=== PATIENT | female | born 1960 | race Caucasian/White ===

== ENCOUNTER → 2017-04-13 | Outpatient (CLI) | payer OTHER ==
--- NOTE | 2017-04-13 12:02 | REP ---
Lumbar spine seven views including lateral views with flexion and extension: There are no comparisons. There is lumbar scoliosis convex right at the thoracolumbar junction and left in the inferior lumbar spine. Vertebral body heights and alignment are normal. There is no spondylolysis or spondylolisthesis. There is degenerative disc disease at every lumbar level. The facet articulations and sacroiliac articulations are unremarkable. There is no listhesis on the lateral views with flexion or extension. Impression: Degenerative disc disease throughout the lumbar spine. Otherwise, negative lumbar spine. Signed by Marcelino Garza MD 04/13/2017 11:54 A
== END ==
LOC: M SMT 10:51
PROVIDERS: ATTEND Family Medicine
DX: M54.5 Low back pain (principal)

== ENCOUNTER → 2017-04-18 | Outpatient (CLI) | payer OTHER ==
[2017-04-18 15:10] LABS: MEAN CORPUSCULAR HEMOGLOBIN 28.6 pg (27.0-33.0); MEAN CORPUSCULAR HGB CONC 31.4 g/dl (32.0-36.5); MEAN CORPUSCULAR VOLUME 90.9 fl (80.0-96.0); PLATELET COUNT, AUTOMATED 350 10^3/uL (150-450); RED CELL DISTRIBUTION WIDTH 13.2 % (11.5-14.5)
[2017-04-18 15:42] LABS: ALBUMIN 3.9 GM/DL (3.2-5.2); ALBUMIN/GLOBULIN RATIO 1.26 (1.00-1.93); ALKALINE PHOSPHATASE 121 U/L (45-117); ALT/SGPT 23 U/L (12-78); ANION GAP 7 MEQ/L (8-16); AST/SGOT 16 U/L (15-37); BILIRUBIN,TOTAL 0.3 MG/DL (0.2-1.0); BLOOD UREA NITROGEN 19 MG/DL (7-18); CALCIUM LEVEL 8.9 MG/DL (8.5-10.1); CARBON DIOXIDE LEVEL 32 MEQ/L (21-32); CHLORIDE LEVEL 105 MEQ/L (98-107); CHOLESTEROL LEVEL 189 MG/DL (<200); CREATININE FOR GFR 0.77 MG/DL (0.55-1.02); GLOMERULAR FILTRATION RATE > 60.0 (>51); GLUCOSE, FASTING 108 MG/DL (70-105); POTASSIUM SERUM 4.1 MEQ/L (3.5-5.1); SODIUM LEVEL 144 MEQ/L (136-145); TRIGLYCERIDES LEVEL 149 MG/DL (<150)
[2017-04-18 16:01] LABS: WHITE BLOOD COUNT 74.7 10^3/uL (4.0-10.0)
[2017-04-18 16:02] LABS: ADD MANUAL DIFFER YES; DIFF SLIDE NUMBER 133
[2017-04-18 16:08] LABS: SMUDGE CELLS 3+
[2017-04-18 16:09] LABS: HYPOCHROMASIA 1+
== END ==
LOC: M SMT 09:03
PROVIDERS: ATTEND Physician Assistant Medical
DX: C91.11 Chronic lymphocytic leukemia of B-cell type in remission (principal); I10 Essential (primary) hypertension; E78.2 Mixed hyperlipidemia

== ENCOUNTER → 2017-05-02 | Outpatient (REF) | payer OTHER ==
[2017-05-02 15:28] LABS: IMMUNOGLOBULIN M 45.9 MG/DL (40-230)
== END ==
LOC: M LAB REF 12:15
PROVIDERS: ATTEND Internal Medicine Medical Oncology
DX: C91.00 Acute lymphoblastic leukemia not having achieved remission (principal)

== ENCOUNTER → 2017-05-04 | Outpatient (REF) | payer OTHER | LOC: M LAB REF 17:09 | PROVIDERS: ATTEND Family Medicine | DX: Z12.4 Encounter for screening for malignant neoplasm of cervix (principal) ==

== ENCOUNTER → 2017-06-28 | Outpatient (CLI) | payer OTHER ==
[~2017-06-28] MED LIST: ISOVUE-370 76% 100ML VIAL (Q9967) As Ordered ONE
--- NOTE | 2017-06-29 09:32 | REP ---
CONTRAST ENHANCED CT OF THE ABDOMEN AND PELVIS: CLINICAL: Chronic lymphocytic leukemia. TECHNIQUE: Axial contrast enhanced images from the lung bases to the pubic symphysis using 100 mL Isovue 370 intravenous contrast material with coronal and sagittal reformations. COMPARISON: None. FINDINGS: The lung bases demonstrate left lower lobe opacity suggesting acute pneumonia along with bibasilar atelectasis. A 12 nodule in the periphery of the left lung base is suggested (image 19). The liver, spleen, pancreas, gallbladder, bilateral adrenal glands and kidneys are normal. The enteric system is without obstruction or acute inflammatory process. Pelvic demonstrates normal bladder and age-appropriate uterus/adnexa. No ascites. No free air. No significant adenopathy. Musculoskeletal structures are intact and normal. IMPRESSION: 1. Moderate left lower lobe opacity suggesting acute pneumonia along with minimal bibasilar atelectasis. 2. No acute abdominal pelvic pathology appreciated. Specifically, no adenopathy or mass lesion. Unreviewed
--- NOTE | 2017-06-29 09:35 | REP ---
CONTRAST ENHANCED CHEST CT: CLINICAL: Chronic lymphocytic leukemia. TECHNIQUE: Axial contrast enhanced images from the thoracic inlet to the upper abdomen using 100 mL Isovue 370 intravenous contrast material with coronal and sagittal reformations. FINDINGS: The lung mclain demonstrate presumed dependent bibasilar atelectasis as well as a moderate area of plate like linear opacity in the left lower lobe which may reflect atelectasis or acute pneumonia. A noncalcified nodular density in the periphery of the left lower lobe measures approximately 12 mm. No further consolidation, nodule or mass lesion identified. Tracheobronchial tree is patent and within normal limits. Mediastinum demonstrates normal thoracic aorta and heart/pericardium. Mild mediastinal and hilar lymph nodes are identified measuring up to approximately 20 mm short axis diameter in the right hilum. No pleural effusion/reaction or pneumothorax. Thoracic aorta and heart/pericardium are within normal limits. Surrounding musculoskeletal structures are intact. IMPRESSION: 1. Mild bibasilar dependent type changes along with moderate area of linear opacity in the left lower lobe suggesting acute pneumonia versus linear plate like atelectasis. Followup examination in 3 months may be warranted. 2. 12 mm noncalcified nodule in the left lower lobe warrants 3 month re-evaluation and followup. Signed by Vicente Domingo MD 07/01/2017 08:48 A
== END ==
LOC: M RAD 13:56
PROVIDERS: ATTEND Internal Medicine Medical Oncology
DX: C91.10 Chronic lymphocytic leukemia of B-cell type not having achieved remission (principal)

== ENCOUNTER 2017-08-20 10:29 | Emergency (ER) | payer OTHER ==
[2017-08-20] MEDS: ASPIRIN 81 MG CHEW TABLET PO ×2 (10:59)
[2017-08-20 11:28] LABS: HEMATOCRIT 37.4 % (36.0-47.0); HEMOGLOBIN 12.1 g/dl (12.0-16.0); MEAN CORPUSCULAR HEMOGLOBIN 28.2 pg (27.0-33.0); MEAN CORPUSCULAR HGB CONC 32.4 g/dl (32.0-36.5); MEAN CORPUSCULAR VOLUME 87.2 fl (80.0-96.0); PLATELET COUNT, AUTOMATED 294 10^3/uL (150-450); RED BLOOD COUNT 4.29 10^6/uL (4.00-5.40); RED CELL DISTRIBUTION WIDTH 13.6 % (11.5-14.5)
[2017-08-20 11:36] LABS: POS COUNT POS FLAG; POSITIVE DIFF POS FLAG; POSITIVE MORPH POS FLAG
[2017-08-20 11:37] LABS: WHITE BLOOD COUNT 58.9 10^3/uL (4.0-10.0)
[2017-08-20 11:38] LABS: ADD MANUAL DIFFER YES; DIFF SLIDE NUMBER 144
[2017-08-20 11:39] LABS: NT-PRO BNP 104 PG/ML (<125)
[2017-08-20 11:41] LABS: ALBUMIN 3.8 GM/DL (3.2-5.2); ALBUMIN/GLOBULIN RATIO 1.09 (1.00-1.93); ALKALINE PHOSPHATASE 111 U/L (45-117); ALT/SGPT 16 U/L (12-78); ANION GAP 7 MEQ/L (8-16); AST/SGOT 14 U/L (7-37); BILIRUBIN,DIRECT < 0.1 MG/DL (0.0-0.2); BILIRUBIN,TOTAL 0.2 MG/DL (0.2-1.0); BLOOD UREA NITROGEN 28 MG/DL (7-18); CALCIUM LEVEL 8.7 MG/DL (8.5-10.1); CARBON DIOXIDE LEVEL 26 MEQ/L (21-32); CHLORIDE LEVEL 109 MEQ/L (98-107); CPK CREATINE PHOSPHOKINASE 56 U/L (26-192); CREATININE FOR GFR 1.12 MG/DL (0.55-1.02); GLUCOSE, FASTING 143 MG/DL (70-100); LIPASE 182 U/L (73-393); MB/CK RELATIVE INDEX 1.78 (< OR =4); POTASSIUM SERUM 3.5 MEQ/L (3.5-5.1); SODIUM LEVEL 142 MEQ/L (136-145); TOTAL PROTEIN 7.3 GM/DL (6.4-8.2); TROPONIN I < 0.02 NG/ML (< 0.10)
[2017-08-20] MEDS ORDERED: ISOVUE-370 76% 100ML VIAL (Q9967) As Ordered ×2 (11:57)
[2017-08-20 12:01] LABS: LYMPHOCYTES 89 % (16-52); NEUTROPHILS 11 % (35-75)
[2017-08-20 12:02] LABS: PLATELET ESTIMATE NORMAL (NORMAL); SMUDGE CELLS 1+
[2017-08-20 12:03] LABS: ANISOCYTOSIS 1+
[2017-08-20 14:24] LABS: CPK CREATINE PHOSPHOKINASE 46 U/L (26-192); MB/CK RELATIVE INDEX 2.17 (< OR =4)
[2017-08-20 14:50] LABS: TROPONIN I < 0.02 NG/ML (< 0.10)
== END 2017-08-20 15:19 | disposition home or self-care (01) ==
LOC: M ED 10:29
DX: R07.9 Chest pain, unspecified (principal); I10 Essential (primary) hypertension; F41.0 Panic disorder [episodic paroxysmal anxiety]; Z87.891 Personal history of nicotine dependence; Z79.899 Other long term (current) drug therapy
CPT/HCPCS: Q9967

== ENCOUNTER 2017-12-13 11:34 | Outpatient (CLI) | payer OTHER | END 2017-12-21 | LOC: M SLEEP HO 11:34 | DX: R06.83 Snoring (principal); R40.0 Somnolence | CPT/HCPCS: G0399 ==

== ENCOUNTER → 2018-03-31 | Outpatient (CLI) | payer OTHER ==
[2018-03-31 18:03] LABS: C REACTIVE PROTEIN QUANTITATIV 0.93 MG/DL (0.00-0.30); IMMUNOGLOBULIN G 789 MG/DL (681-1648)
[2018-03-31 18:45] LABS: ERYTHROCYTE SEDIMENTATION RATE 25 mm/hr (0-30)
[2018-04-07 14:14] LABS: ANCA-ATYPICAL <1:20 titer (Neg:<1:20); ANTI-SACCHAROMYCES CEREV. IgA <20.0 Units (0.0-24.9); ANTI-SACCHAROMYCES CEREV. IgG 27.7 Units (0.0-24.9); CYTOPLASMIC NEUTROP AB ANCA-C <1:20 titer (Neg:<1:20); ENDOMYSIAL ABY IgA Negative (Negative); PERINUCLEAR AB ANCA-P <1:20 titer (Neg:<1:20); TISSUE TRANSGLUTAMINASE IgA <2 U/mL (0-3); UNITSIGA FOR GLIADIN IGA 3 units (0-19); UNITSIGG FOR GLIADIN IGG 2 units (0-19)
== END ==
LOC: M SMT 13:02
DX: R13.10 Dysphagia, unspecified (principal); R19.7 Diarrhea, unspecified; R14.0 Abdominal distension (gaseous); R14.1 Gas pain; K62.5 Hemorrhage of anus and rectum; R10.84 Generalized abdominal pain
CPT/HCPCS: 86255

== ENCOUNTER → 2018-06-13 | Outpatient (CLI) | payer MEDICARE ==
[~2018-06-13] MED LIST changes: +ISOVUE-370 76% 100ML VIAL (Q9967) As Ordered; -ISOVUE-370 76% 100ML VIAL (Q9967) As Ordered ONE
== END ==
LOC: M RAD 17:56
DX: C91.10 Chronic lymphocytic leukemia of B-cell type not having achieved remission (principal); R59.0 Localized enlarged lymph nodes
CPT/HCPCS: Q9967

== ENCOUNTER 2018-07-31 14:48 | Emergency (ER) | payer MEDICARE ==
[~2018-07-31] VITALS: Ht 157.5 cm; Wt 75.0 kg
[~2018-07-31 14:48] MED LIST changes: +ALPR0.5T3 PO; +AMLO5TAB6 PO; +BACITAB PO; +CYMB60CA3 PO; +DICY20TA11 PO; +FLUTISP; +GABA-843 PO; +HYDR25TAB PO; -ISOVUE-370 76% 100ML VIAL (Q9967) As Ordered; +LEVO750T13 PO; +LISI40TA PO; +METO100T5 PO; +MIRT-16 PO; +PANT40TA3 PO; +PRAV10TA4 PO; +VENTAER IN
[2018-07-31] MEDS ORDERED: DULO1CAP2 (14:59)
--- NOTE | 2018-07-31 15:33 | REP ---
Chest one-view HISTORY: Chest pain Comparison: 08/20/2017 Linear densities are present in the left lower lobe consistent with atelectasis or scar. The right lung is clear. The heart is normal in size. The pulmonary vasculature is normal in appearance. Impression: Left lower lobe atelectasis or scar. Electronically Signed by Tanner Awan MD 07/31/2018 03:24 P
[2018-07-31 15:41] LABS: HEMATOCRIT 36.2 % (36.0-47.0); HEMOGLOBIN 11.2 g/dl (12.0-15.5); MEAN CORPUSCULAR HEMOGLOBIN 25.8 pg (27.0-33.0); MEAN CORPUSCULAR HGB CONC 30.9 g/dl (32.0-36.5); MEAN CORPUSCULAR VOLUME 83.4 fl (80.0-96.0); PLATELET COUNT, AUTOMATED 317 10^3/uL (150-450); RED BLOOD COUNT 4.34 10^6/uL (4.00-5.40)
[2018-07-31 16:15] LABS: ATYPICAL LYMPH 61 % (0-5); LYMPHOCYTES 17 % (16-52); MONOCYTES 3 % (0-8); NEUTROPHILS 19 % (35-75); PLATELET ESTIMATE NORMAL (NORMAL)
[2018-07-31 16:16] LABS: SMUDGE CELLS 2+
[2018-07-31 16:19] LABS: OVALOCYTES 1+; POLYCHROMASIA 1+
[2018-07-31 16:22] LABS: ALBUMIN 3.7 GM/DL (3.2-5.2); ALT/SGPT 43 U/L (12-78); BILIRUBIN,DIRECT 0.1 MG/DL (0.0-0.2); BILIRUBIN,TOTAL 0.4 MG/DL (0.2-1.0); BLOOD UREA NITROGEN 11 MG/DL (7-18); CALCIUM LEVEL 8.3 MG/DL (8.8-10.2); CARBON DIOXIDE LEVEL 24 MEQ/L (21-32); CHLORIDE LEVEL 110 MEQ/L (98-107); CK-MB VALUE MASS < 1.0 NG/ML (<3.6); CPK CREATINE PHOSPHOKINASE 72 U/L (26-192); CREATININE FOR GFR 0.84 MG/DL (0.55-1.30); GLOMERULAR FILTRATION RATE > 60.0 (>45); GLUCOSE, FASTING 125 MG/DL (70-100); LIPASE 154 U/L (73-393); MB/CK RELATIVE INDEX 1.39 (< OR =4); POTASSIUM SERUM 3.5 MEQ/L (3.5-5.1); SODIUM LEVEL 143 MEQ/L (136-145); TOTAL PROTEIN 6.6 GM/DL (6.4-8.2); TROPONIN I < 0.02 NG/ML (< 0.10)
[2018-07-31] MEDS ORDERED: AMLO25TA PO (16:41)
[2018-07-31] MEDS ORDERED: amLODIPine 5 MG TAB PO ONE (16:45)
[2018-07-31 17:06] VITALS: BP_SYST 176; BP_SYST 180; BP_DIAS 81; BP_DIAS 83
--- NOTE | 2018-08-01 18:19 | ECGEPIP ---
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
== END 2018-07-31 17:15 | disposition home or self-care (01) ==
LOC: M ED 14:48
DX: I10 Essential (primary) hypertension (principal); F41.9 Anxiety disorder, unspecified; C91.10 Chronic lymphocytic leukemia of B-cell type not having achieved remission

== ENCOUNTER → 2018-09-13 | Outpatient (CLI) | payer MEDICARE ==
[~2018-09-13] MED LIST changes: +AMLO10TA5 PO; +AMLO25TA PO; +DULO1CAP2
--- NOTE | 2018-09-15 10:43 | SLEEPCENT ---
DATE OF PROCEDURE: 09/13/2018 ORDERED BY: Vicente Lewis Nocturnal polysomnography was performed for the titration of pressure therapy in this patient with a clinical diagnosis of obstructive sleep apnea syndrome confirmed by home testing revealing a respiratory event index of 6.4. For testing, the patient was fit with a [employer] full face mask of small size and 4 cm of water pressure were applied to the circuit and the lights were extinguished. 7 hours and 57 minutes of data were reviewed. There were 323 minutes of sleep identified. Sleep latency was prolonged at 67 minutes. Rapid eye movement (REM) latency was prolonged at 224 minutes. Sleep architecture improved late in the study. Overall sleep efficiency was 69.7%. The electrocardiogram showed a sinus rhythm with an average heart rate of 62 beats per minute. Electroencephalogram (EEG) showed reasonably normal waveforms for awake and sleep. Persistent respiratory events prompted an increase in C-PAP from 4 to 7, at which point, hypoventilatory oxygen desaturations persisted prompting the addition of supplemental oxygen. Best sleep was seen on C-PAP at 7 cm of water with 2 liters of oxygen bled through the C-PAP circuit to maintain a saturation of 90% plus. There was also some activity noted in the limb leads. Limb movement arousal index was 13.2. IMPRESSION: Obstructive sleep apnea syndrome (G47.33). RECOMMENDATION: Nightly use of pressure therapy at 7 cm of water with 2 liters of oxygen bled through the system to address hypoventilatory oxygen desaturations.
== END ==
LOC: M SLEEP 19:47
PROVIDERS: ATTEND Physician Assistant
DX: G47.33 Obstructive sleep apnea (adult) (pediatric) (principal)

== ENCOUNTER → 2018-09-29 | Outpatient (CLI) | payer MEDICARE ==
[~2018-09-29] MED LIST changes: +E-Z-GAS II EFFERVESCENT PACKET (SODIUM BICARB./CITRIC ACID/SIMETHICONE) As Ordered ONE; +E-Z-HD 98% w/w 340GM SUSP BTL As Ordered ONE; +E-Z-PAQUE 96% w/w SUSP 176GM BTL As Ordered ONE
--- NOTE | 2018-10-02 11:00 | REP ---
UPPER GI AIR CONTRAST AND SMALL BOWEL FOLLOW THROUGH The procedure was performed under the direct supervision of Dr. Platt. The images were reviewed with Dr. Platt The forestry foreman film shows no organomegaly or pathological masses. The intestinal gas pattern is non-specific. Liquid barium and gas producing crystals were given in the erect position as well as liquid barium in the prone oblique position in order to perform a double contrast upper GI examination. Additionally liquid barium was given at the end of the examination in order to perform a small bowel follow through. The oral and pharyngeal stages of deglutition are unremarkable. Esophageal transport is prompt and efficient and there is no esophagitis, stricture, mucosal ring or hiatal hernia. There is gastroesophageal reflux demonstrated to above the level of the joyce. The stomach giraldo are normally outlined . The rugal folds are smooth and regular. There is no gastritis neoplasm or ulcer disease. The duodenal giraldo are normally outlined . The mucosal folds are smooth and regular. There is no duodenitis pancreatitis peptic ulcer disease or neoplasm. The visualized portion of the proximal small bowel appears normal in course and caliber. The barium column was followed through the small bowel to the level of the terminal ileum. Small bowel transit time is approximately 2 hours and 15 minutes . During fluoroscopy gentle palpation shows all loops are freely movable and pliable. There are no fixed or angulated loops. The small bowel mucosal pattern is normal in course and caliber. There is no transition to suggest a partial small-bowel obstruction. Spot filming of the terminal ileum shows it to be unremarkable. Impression: There is gastroesophageal reflux demonstrated to above the level of the joyce. Otherwise, unremarkable double contrast upper GI and small bowel follow through examination. 1.3 minutes of fluoro time was utilized for this procedure. Reviewed by KENNEDY Huitron 09/29/2018 05:15 P Electronically Signed by Marcelino Platt MD 10/02/2018 10:51 A
== END ==
LOC: M RAD 07:57
PROVIDERS: ATTEND Physician Assistant
DX: D50.9 Iron deficiency anemia, unspecified (principal); K21.9 Gastro-esophageal reflux disease without esophagitis

== ENCOUNTER → 2018-10-16 | Outpatient (REF) | payer MEDICARE ==
[~2018-10-16] MED LIST changes: -E-Z-GAS II EFFERVESCENT PACKET (SODIUM BICARB./CITRIC ACID/SIMETHICONE) As Ordered ONE; -E-Z-HD 98% w/w 340GM SUSP BTL As Ordered ONE; -E-Z-PAQUE 96% w/w SUSP 176GM BTL As Ordered ONE
== END ==
LOC: M SFHCPLAZ 11:39
PROVIDERS: ATTEND Dermatology
DX: L57.0 Actinic keratosis (principal); D22.5 Melanocytic nevi of trunk; D23.39 Other benign neoplasm of skin of other parts of face

== ENCOUNTER 2018-12-26 15:36 | Emergency (ER) | payer MEDICARE ==
[~2018-12-26] VITALS: Ht 157.5 cm; Wt 76.4 kg
[~2018-12-26 15:36] MED LIST changes: +CARV25TA PO; +FURO40TA2 PO; -MIRT-16 PO; +MIRT1TAB16 PO; +POTA20TA6 PO
[2018-12-26] MEDS ORDERED: PERCOCET 5MG/325MG TAB PO ONE (16:45)
--- NOTE | 2018-12-26 16:53 | REP ---
LEFT KNEE, FOUR VIEWS: HISTORY: Trauma. There is no acute fracture or dislocation. The joint spaces are normal in appearance. Calcification is present superior to the patella. This represents tendon calcification. IMPRESSION: There is no acute fracture or dislocation. Electronically Signed by Tanner Awan MD 12/26/2018 04:55 P
--- NOTE | 2018-12-26 16:57 | REP ---
LEFT TIBIA FIBULA, FOUR VIEWS: HISTORY: Trauma. The patient is status-post ORIF of fractures of the distal tibia and fibula. Metal hardware is present. There is a nondisplaced fracture at the junction of the proximal and middle thirds of the fibula. There is no dislocation. The knee joint space is normal in appearance. IMPRESSION: Nondisplaced fracture at the junction of the proximal and middle thirds of the fibula. Electronically Signed by Tanner Awan MD 12/26/2018 05:05 P
--- NOTE | 2018-12-26 17:01 | REP ---
LEFT ANKLE, FOUR VIEWS: HISTORY: Trauma. The patient is status-post ORIF of the fractures of the distal tibia and fibula. Metal hardware is present. There is no acute fracture or dislocation. The joint space is normal in appearance. Osteophytes are present on the inferior and posterior calcaneus. IMPRESSION:There is no acute fracture or dislocation. Electronically Signed by Tanner Awan MD 12/26/2018 05:05 P
[2018-12-26] MEDS ORDERED: PERC5TAB12 PO (17:27)
[2018-12-26 17:45] VITALS: BP 159/71
== END 2018-12-26 18:33 | disposition home or self-care (01) ==
LOC: M ED 15:36 → EDBD 15:36 → M ED 18:33
DX: S82.402A Unspecified fracture of shaft of left fibula, initial encounter for closed fracture (principal); W01.0XXA Fall on same level from slipping, tripping and stumbling without subsequent striking against object, initial encounter; Y92.830 Public park as the place of occurrence of the external cause; C91.10 Chronic lymphocytic leukemia of B-cell type not having achieved remission; I10 Essential (primary) hypertension; E78.9 Disorder of lipoprotein metabolism, unspecified; D50.9 Iron deficiency anemia, unspecified; K58.9 Irritable bowel syndrome, unspecified; F41.9 Anxiety disorder, unspecified; F32.9 Major depressive disorder, single episode, unspecified; Z79.899 Other long term (current) drug therapy

== ENCOUNTER → 2019-03-23 | Outpatient (CLI) | payer MEDICARE ==
[~2019-03-23] MED LIST changes: -DULO1CAP2; +DULO1CAP5; +FURO20TA2 PO; +GASTROGRAFIN SOLUTION 30ML (Q9963) As Ordered ONE; +IMBR1CAP PO; +ISOVUE-370 76% 100ML VIAL (Q9967) As Ordered ONE; +LISI-538 PO; +PERC5TAB12 PO
--- NOTE | 2019-03-23 18:57 | REP ---
Clinical: Chronic lymphocytic leukemia for restaging. Technique: Axial contrast enhanced images from the thoracic inlet to the upper abdomen with coronal and sagittal re-formations using 100 ml Isovue 370 intravenous contrast material. Comparison: 06/13/2018. Findings: The bilateral lung mclain demonstrate mild stable chronic interstitial changes and minimal primarily left basilar chronic scarring. No acute consolidation, nodule or mass lesion. Tracheobronchial tree is patent. No effusion. No pneumothorax. The mediastinum demonstrates stable bilateral hilar lymph nodes measuring 2.0 cm on the right and 1.7 cm on the left. Congenital duplicated superior vena cava again noted. Thoracic aorta is without aneurysm or dissection. No cardiomegaly. No pericardial effusion. No significant axillary adenopathy. Musculoskeletal structures demonstrate stable degenerative changes. Impression: 1. Lung mclain demonstrate stable chronic interstitial changes and minimal basilar scarring without acute mediastinal or pleuroparenchymal process. 2. Stable hilar lymph nodes without increased adenopathy. Electronically Signed by Vicente Domingo MD 03/23/2019 06:49 P
--- NOTE | 2019-03-23 19:05 | REP ---
Clinical: Chronic lymphocytic leukemia for restaging. Technique: Axial contrast enhanced images from the lung bases to the pubic symphysis using oral (per protocol) and 100 ml Isovue 370 intravenous contrast material with coronal and sagittal re-formations. Comparison: 08/20/2017. Findings: Lung bases demonstrate minimal left basilar and lingular fibroatelectatic changes. Visualized heart and pericardium normal. Liver, spleen, pancreas, gallbladder, bilateral adrenal glands and kidneys are relatively normal. Subcentimeter renal hypodensities likely represent small cysts and are essentially unchanged compared to prior examination. The enteric system is without obstruction or acute inflammatory process. Colonic and sigmoid diverticulosis noted without acute diverticulitis. Pelvis demonstrates normal bladder and age-appropriate uterus/adnexa. No ascites. Small intra-abdominal/mesenteric lymph nodes measure up to approximately 12.5 mm maximal diameter and bilateral inguinal lymph nodes measuring up to approximately 1.9 cm maximal diameter are essentially unchanged compared to prior examination and no increased adenopathy is otherwise noted. Abdominal aorta demonstrates atherosclerotic changes without aneurysm or dissection. Musculoskeletal structures demonstrate degenerative changes without focal osseous abnormality. Impression: 1. Nonspecific mesenteric and inguinal lymph nodes remain stable. No increased adenopathy, ascites or mass lesion appreciated. 2. Colonic and predominantly sigmoid diverticulosis without acute diverticulitis. 3. Stable subcentimeter renal hypodensities likely representing small cysts. Electronically Signed by Vicente Domingo MD 03/23/2019 06:57 P
--- NOTE | 2019-03-27 09:16 | REP ---
Soft-tissue neck CT study with IV contrast: History: CLL, restaging. New neck adenopathy. No comparison soft-tissue neck CT study. CT contrast dose: 100 mL of intravenous Isovue 370. CT findings: There is a 1 cm mucous retention cyst in the right maxillary sinus. The paranasal sinuses are otherwise clear. No bony destructive lesion is seen. There are some degenerative spondylosis changes in the cervical spine. Parotid and submandibular glands are normal and symmetric. Thyroid lobes are homogeneous and normal in size. Tonsillar and peritonsillar soft tissues are unremarkable. There is no evidence of neck mass. There are scattered bilateral anterior cervical lymph nodes. The largest of these is on the left with measurements of 19 x 11 x 12 mm. This is the only enlarged lymph node visible in the neck. There are a few scattered normal-sized posterior cervical lymph nodes. No glottic or subglottic airway lesion is appreciated. The lung apices are clear. On the lower most cuts there is a 13 mm lymph node in the right hilus and a similar sized lymph node is seen in the subcarinal chain. Impression: Scattered normal-sized lymph nodes. There is one mildly hypertrophied lymph node in the left anterior neck. Borderline size right hilar and subcarinal lymph nodes in the mediastinum. Small mucous retention cyst in the right maxillary sinus. Otherwise negative. Electronically Signed by Macario Wiley MD 03/27/2019 09:44 A
== END ==
LOC: M RAD 14:53
PROVIDERS: ATTEND Internal Medicine Medical Oncology
DX: C91.12 Chronic lymphocytic leukemia of B-cell type in relapse (principal)
CPT/HCPCS: 70491; 71260; 74177; Q9963; Q9967

== ENCOUNTER 2019-04-05 10:45 | Emergency (ER) | payer MEDICARE ==
[~2019-04-05] VITALS: Ht 157.5 cm; Wt 74.0 kg
[~2019-04-05 10:45] MED LIST changes: -FURO20TA2 PO; -GASTROGRAFIN SOLUTION 30ML (Q9963) As Ordered ONE; -ISOVUE-370 76% 100ML VIAL (Q9967) As Ordered ONE; -LISI-538 PO
[2019-04-05] MEDS ORDERED: CYMB60CA3 PO (12:31)
[2019-04-05 14:00] VITALS: BP 160/90
[2019-04-05] MEDS ORDERED: LISI-538 PO (14:38)
[2019-04-05] MEDS ORDERED: POTA20TA6 PO (14:38)
[2019-04-05] MEDS ORDERED: FURO20TA2 PO (14:38)
--- NOTE | 2019-04-05 20:37 | ECGEPIP ---
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
== END 2019-04-05 14:47 | disposition home or self-care (01) ==
LOC: M ED 10:45
DX: I10 Essential (primary) hypertension (principal); Z91.14 Patient's other noncompliance with medication regimen; E78.5 Hyperlipidemia, unspecified; K58.9 Irritable bowel syndrome, unspecified; Z87.01 Personal history of pneumonia (recurrent); Z79.899 Other long term (current) drug therapy

== ENCOUNTER 2019-11-04 19:49 | Emergency (ER) | payer MEDICARE ==
[~2019-11-04] VITALS: Ht 157.5 cm; Wt 77.3 kg
[~2019-11-04 19:49] MED LIST changes: +CEFU1TAB20 PO; +FURO20TA2 PO; +LISI-538 PO; +NORV5TAB PO
[2019-11-04] MEDS ORDERED: ONDANSETRON 4MG/2ML VIAL (J2405 PER 1MG) IV ONE (20:15)
[2019-11-04] MEDS ORDERED: MORPHINE 10 MG/ML 1ML VIAL (J2270) IV ONE (20:15)
[2019-11-04] MEDS ORDERED: propofoL 200 MG/20 ML VIAL As Ordered ONE (21:05)
[2019-11-04] MEDS ORDERED: propofoL 200 MG/20 ML VIAL IV ONE (21:30)
[2019-11-04] MEDS ORDERED: NORCO 5/325MG TABLET (BULK FOR ED) PO ONE (21:45)
[2019-11-04 21:55] VITALS: BP 109/58
--- NOTE | 2019-11-05 03:28 | REP ---
Clinical: Status post reduction. Technique: Portable AP and lateral views of the right wrist. Findings: Comminuted fracture involving the distal radial metaphysis and fracture of the ulnar styloid process are again noted. Reduction and alignment may warrant reevaluation. Impression: Status post reduction. Reevaluation may be warranted. Electronically Signed by Vicente Domingo MD 11/05/2019 03:19 A
--- NOTE | 2019-11-05 03:33 | REP ---
Clinical: Trauma. Technique: Portable AP and lateral views of the left forearm. Findings: Comminuted posteriorly displaced Colles' fracture of the distal radial metaphysis and ulnar styloid fracture noted with overlying soft tissue swelling. Impression: Comminuted displaced Colles' fracture of the distal radius and ulnar styloid. Electronically Signed by Vicente Domingo MD 11/05/2019 03:25 A
== END 2019-11-04 22:09 | disposition home or self-care (01) ==
LOC: M ED 19:49
DX: S52.532A Colles' fracture of left radius, initial encounter for closed fracture (principal); S52.612A Displaced fracture of left ulna styloid process, initial encounter for closed fracture; W01.0XXA Fall on same level from slipping, tripping and stumbling without subsequent striking against object, initial encounter; Y92.099 Unspecified place in other non-institutional residence as the place of occurrence of the external cause; Y93.9 Activity, unspecified; Y99.9 Unspecified external cause status; I10 Essential (primary) hypertension; K21.9 Gastro-esophageal reflux disease without esophagitis; J45.909 Unspecified asthma, uncomplicated; F32.9 Major depressive disorder, single episode, unspecified; D50.9 Iron deficiency anemia, unspecified; C91.10 Chronic lymphocytic leukemia of B-cell type not having achieved remission; Z79.899 Other long term (current) drug therapy
CPT/HCPCS: 25605; 73090; 73100; 96374; 96375; 99152; 99153; 99285; J2270; J2405

== ENCOUNTER → 2020-07-01 | Outpatient (CLI) | payer SELFPAY ==
[~2020-07-01] MED LIST changes: -AMLO10TA5 PO; +AMLO1TAB24 PO; +AMLO1TAB25 PO; -AMLO5TAB6 PO; +PANT40TA29 PO; -PANT40TA3 PO
== END ==
LOC: M LABSMTC 14:59
PROVIDERS: ATTEND Pediatrics
DX: Z11.59 Encounter for screening for other viral diseases (principal)

== ENCOUNTER → 2020-11-27 | Outpatient (CLI) | payer MEDICARE ==
[~2020-11-27] MED LIST changes: +COVI100V IM; -DULO1CAP5; +DULO1CAP5 PO; +GABA-282 PO; -GABA-843 PO; +HYDR-3490 PO; -HYDR25TAB PO; -LISI-538 PO; +LISI20TA33 PO; -LISI40TA PO; +LISI40TA4 PO
--- NOTE | 2020-11-27 15:16 | REP ---
INDICATION: PERSONAL HISTORY OF NICOTINE DEPENDENCE. COMPARISON: Comparison chest CT studies are reviewed dated June 28, 2017, August 20, 2017, June 13, 2018, and the most recent study from March 23, 2019.. TECHNIQUE: Dose reduction was performed utilizing CARE dose with automated adjustment of the kV and MAS according to patient size; iterative reconstruction, automated exposure control, as well as adaptive dose shielding. Helical scanning is acquired and 3 mm axial images are re-formatted at lung only windows. FINDINGS: Digital preliminary drier helper radiograph and axial CT images demonstrate linear scarring in the lingula. This is unchanged from comparison CT study of March 23, 2019. It is somewhat less pronounced than the scarring noted on June 28, 2017. There is also some mild linear fibrosis in the left lower lobe unchanged. No new infiltrate is seen. No lung mass or new pulmonary nodule is appreciated. IMPRESSION: Lung RADS category 1 findings. Repeat screening study suggested in 1 year. <Electronically signed by Jason Wiley > 11/27/20 [id number]
== END ==
LOC: M RAD 13:04
PROVIDERS: ATTEND Family Medicine
DX: Z12.2 Encounter for screening for malignant neoplasm of respiratory organs (principal); Z87.891 Personal history of nicotine dependence

== ENCOUNTER → 2020-12-01 | Outpatient (REF) | payer MEDICARE | LOC: M LAB REF 17:23 | PROVIDERS: ATTEND Family Medicine | DX: R30.0 Dysuria (principal) ==

== ENCOUNTER → 2021-04-21 | Outpatient (REF) | payer MEDICARE | LOC: M LAB REF 17:11 | PROVIDERS: ATTEND Family Medicine | DX: J06.9 Acute upper respiratory infection, unspecified (principal) ==

== ENCOUNTER → 2021-12-01 | Outpatient (CLI) | payer MEDICARE ==
[~2021-12-01] MED LIST changes: -CYMB60CA3 PO; +CYMB60CA4 PO; -DICY20TA11 PO; +DICY20TA20 PO; +MUCI600T31 PO; +OMEP-173; +POTA-151 PO; -POTA20TA6 PO; +PRED10TA2
== END ==
LOC: M RAD 09:52
PROVIDERS: ATTEND Family Medicine
DX: Z12.2 Encounter for screening for malignant neoplasm of respiratory organs (principal); Z87.891 Personal history of nicotine dependence

== ENCOUNTER → 2022-04-01 | Outpatient (CLI) | payer MEDICARE ==
[~2022-04-01] MED LIST changes: +LEVO1TAB40 PO; -LEVO750T13 PO
== END ==
LOC: M WHC 12:43
PROVIDERS: ATTEND Nurse Practitioner Adult Health
DX: Z12.31 Encounter for screening mammogram for malignant neoplasm of breast (principal); Z13.820 Encounter for screening for osteoporosis; R92.8 Other abnormal and inconclusive findings on diagnostic imaging of breast

== ENCOUNTER 2022-04-26 12:17 | Observation (INO) | payer MEDICARE ==
[~2022-04-26] VITALS: Ht 165.1 cm; Wt 73.7 kg
[~2022-04-26 12:17] MED LIST changes: -FLUTISP; +FLUTISP NARES; -OMEP-173; +OMEP-173 PO; -VENTAER IN; +VENTAER INH
[2022-04-26] MEDS ORDERED: METOPROLOL TART 25 MG TABLET PO ONE (13:15)
[2022-04-26] MEDS: METOPROLOL 5 MG/5 ML VIAL IV SCH ×3 (13:25→14:46)
[2022-04-26 13:38] LABS: HEMATOCRIT 43.9 % (36.0-47.0); HEMOGLOBIN 14.2 g/dl (12.0-15.5); MEAN CORPUSCULAR HEMOGLOBIN 27.9 pg (27.0-33.0); MEAN CORPUSCULAR HGB CONC 32.3 g/dl (32.0-36.5); MEAN CORPUSCULAR VOLUME 86.2 fl (80.0-96.0); PLATELET COUNT, AUTOMATED 365 10^3/uL (150-450); RED BLOOD COUNT 5.09 10^6/uL (4.00-5.40); WHITE BLOOD COUNT 29.9 10^3/uL (4.0-10.0)
[2022-04-26 14:26] LABS: CREATININE FOR GFR 1.14 MG/DL (0.55-1.30); GLOMERULAR FILTRATION RATE 51.1 (>45); MAGNESIUM LEVEL 2.4 MG/DL (1.8-2.4); POTASSIUM SERUM 3.9 MEQ/L (3.5-5.1); THYROID STIMULATING HORMONE 2.08 uIU/ML (0.358-3.740)
[2022-04-26 14:35] LABS: ATYPICAL LYMPH 2 % (0-5); LYMPHOCYTES 62 % (16-44); NEUTROPHILS 36 % (28-66)
[2022-04-26 14:36] LABS: PLATELET ESTIMATE NORMAL (NORMAL)
[2022-04-26 14:37] LABS: SMUDGE CELLS 3+
[2022-04-26] MEDS ORDERED: LIDOCAINE W/EPINEPHRINE 1% 20ML VIAL SC ONE (14:55)
[2022-04-26] MEDS ORDERED: DIGOXIN INJ 0.5 MG/2 ML AMP (J1160) IV ONE (15:55)
[2022-04-26] MEDS ORDERED: APIXABAN 5 MG TAB (ELIQUIS) PO ONE (16:00)
[2022-04-26] MEDS ORDERED: ALEN70TA82 PO (16:24)
[2022-04-26] MEDS ORDERED: POTA1TAB14 PO (16:24)
[2022-04-26] MEDS ORDERED: AMLO1TAB24 PO (16:24)
[2022-04-26] MEDS ORDERED: LISI40TA4 PO (16:24)
[2022-04-26] MEDS ORDERED: FURO20TA2 PO (16:24)
[2022-04-26] MEDS ORDERED: GABA-1171 PO (16:24)
[2022-04-26] MEDS ORDERED: HOME MED LIST COMPLETE! XX SCH (16:25)
[2022-04-26 18:55] LABS: RSV AMPLIFICATION NEGATIVE (NEGATIVE)
[2022-04-26] MEDS ORDERED: diltiaZEM 125 MG in NS 100 ML IV SCH ×2 (20:00→21:21)
[2022-04-26] MEDS ORDERED: MIRTAZAPINE 15 MG TAB PO SCH (21:00)
[2022-04-26 21:37] LABS: ALBUMIN 3.9 GM/DL (3.2-5.2); BILIRUBIN,DIRECT 0.2 MG/DL (0.0-0.2); BILIRUBIN,TOTAL 0.5 MG/DL (0.2-1.0); TOTAL PROTEIN 7.2 GM/DL (6.4-8.2)
[2022-04-26] MEDS: ALPRAZolam 0.5 MG TAB PO PRN (21:56)
[2022-04-26] MEDS: GABAPENTIN 100 MG CAP PO SCH (21:56)
[2022-04-26] MEDS: APIXABAN 5 MG TAB (ELIQUIS) PO SCH (21:56)
[2022-04-26 22:39] VITALS: BP 132/95
[2022-04-27 00:28] VITALS: BP 120/70
[2022-04-27 04:00] VITALS: BP 120/61
[2022-04-27] MEDS ORDERED: CALCIUM CARBONATE 500 MG CHEW U/D PO PRN (04:55)
[2022-04-27 05:42] LABS: HEMATOCRIT 47.1 % (36.0-47.0); HEMOGLOBIN 14.1 g/dl (12.0-15.5); MEAN CORPUSCULAR HEMOGLOBIN 28.3 pg (27.0-33.0); MEAN CORPUSCULAR HGB CONC 29.9 g/dl (32.0-36.5); MEAN CORPUSCULAR VOLUME 94.6 fl (80.0-96.0); PLATELET COUNT, AUTOMATED 311 10^3/uL (150-450); RED BLOOD COUNT 4.98 10^6/uL (4.00-5.40); WHITE BLOOD COUNT 23.1 10^3/uL (4.0-10.0)
[2022-04-27 05:54] LABS: ATYPICAL LYMPH 3 % (0-5); EOSINOPHILS 1 % (0-3); HEMOGLOBIN A1c 5.8 %; LYMPHOCYTES 64 % (16-44); MONOCYTES 5 % (0-5); NEUTROPHILS 27 % (28-66)
[2022-04-27 05:55] LABS: ANISOCYTOSIS 1+; PLATELET ESTIMATE NORMAL (NORMAL); POIKILOCYTOSIS 1+
[2022-04-27 06:11] LABS: BLOOD UREA NITROGEN 19 MG/DL (7-18); CALCIUM LEVEL 8.7 MG/DL (8.8-10.2); CARBON DIOXIDE LEVEL 29 MEQ/L (21-32); CHLORIDE LEVEL 108 MEQ/L (98-107); CHOLESTEROL LEVEL 186 MG/DL (<200); CHOLESTEROL RISK RATIO 4.325 (<5); CREATININE FOR GFR 0.99 MG/DL (0.55-1.30); GLOMERULAR FILTRATION RATE > 60.0 (>45); GLUCOSE, FASTING 115 MG/DL (70-100); HDL CHOLESTEROL 43 MG/DL (>40); LDL CHOLESTEROL 102 MG/DL (<100); MAGNESIUM LEVEL 2.5 MG/DL (1.8-2.4); NON-HDL-C 143 MG/DL; POTASSIUM SERUM 3.7 MEQ/L (3.5-5.1); SODIUM LEVEL 140 MEQ/L (136-145); TRIGLYCERIDES LEVEL 203 MG/DL (<150)
[2022-04-27 07:59] VITALS: BP 145/73
[2022-04-27] MEDS ORDERED: METOCLOPRAMIDE 5 MG TAB PO ONE (08:00)
[2022-04-27] MEDS: GABAPENTIN 100 MG CAP PO SCH ×2 (08:54→15:14)
[2022-04-27] MEDS: APIXABAN 5 MG TAB (ELIQUIS) PO SCH (08:57)
[2022-04-27] MEDS ORDERED: FUROSEMIDE 20 MG TAB PO SCH (09:00)
[2022-04-27] MEDS ORDERED: OMEPRAZOLE 20MG CAP PO SCH (09:00)
[2022-04-27] MEDS ORDERED: PRAVASTATIN 10 MG TAB PO SCH (09:00)
[2022-04-27] MEDS ORDERED: FLUBLOK(EGG FREE)(QUAD)INFLUENZA VACC 0.5ML SYRINGE 18YRS & OLDER IM.IMMUN ONE (09:00)
[2022-04-27] MEDS ORDERED: POTASSIUM CHLORIDE 10MEQ SR TABLET PO SCH (09:00)
[2022-04-27] MEDS ORDERED: FLUTICASONE PROP 0.05% NASAL SPRAY 16 GM (FLONASE) NARES SCH (09:00)
[2022-04-27] MEDS ORDERED: DULoxetine 30MG CAPSULE (CYMBALTA) PO SCH (09:00)
[2022-04-27] MEDS: ALPRAZolam 0.5 MG TAB PO PRN (09:05)
[2022-04-27 12:32] VITALS: BP 156/72
[2022-04-27] MEDS ORDERED: amLODIPine 5 MG TAB PO SCH (13:50)
[2022-04-27] MEDS ORDERED: DILT120C78 PO (14:04)
[2022-04-27 14:57] VITALS: BP 123/70
[2022-04-27] MEDS ORDERED: ELIQ5TAB PO (15:08)
[2022-04-27 15:14] VITALS: BP 123/70
== END 2022-04-27 17:32 | disposition home or self-care (01) ==
LOC: M ED 12:17 → M ED INP 12:18 → ENRESERV 21:01 → M PCU 22:39
PROVIDERS: ADMIT Internal Medicine; ATTEND Internal Medicine
DX: I48.0 Paroxysmal atrial fibrillation (principal); E78.49 Other hyperlipidemia; I10 Essential (primary) hypertension; K58.8 Other irritable bowel syndrome; C91.10 Chronic lymphocytic leukemia of B-cell type not having achieved remission; F41.9 Anxiety disorder, unspecified; F32.A Depression, unspecified; K21.9 Gastro-esophageal reflux disease without esophagitis; G47.33 Obstructive sleep apnea (adult) (pediatric); I35.0 Nonrheumatic aortic (valve) stenosis; Z79.899 Other long term (current) drug therapy; Z79.01 Long term (current) use of anticoagulants
CPT/HCPCS: 36415; 70450; 70486; 71045; 72125; 80048; 80061; 80076; 83036; 83735; 84443; 84484; 85025; 87631; 90682; 93005; 93041; 93306; 94760; 96365; 96366; 96375; 96376; 97161; 99285; G0008; G0378; J1160

== ENCOUNTER → 2022-06-22 | Outpatient (CLI) | payer MEDICARE ==
[~2022-06-22] MED LIST changes: +ALEN70TA82 PO; +AZEL1SPR3; +CHLO125TA; +DILT120C78 PO; +DILT1CAP5; +ELIQ5TAB PO; +GABA-1171 PO; +GABA-282; +POTA1TAB14 PO; +SPIR-10
== END ==
LOC: M LABSMTC 10:26
PROVIDERS: ATTEND Anesthesiology
DX: Z01.812 Encounter for preprocedural laboratory examination (principal); Z20.822 Contact with and (suspected) exposure to COVID-19

== ENCOUNTER 2022-06-24 11:48 | Day surgery (SDC) | payer MEDICARE ==
[~2022-06-24] VITALS: Ht 157.5 cm; Wt 78.7 kg
[~2022-06-24 11:48] MED LIST changes: +ceFAZolin SOD 2 GM in IV 1 EA IV ONE
[2022-06-24] MEDS ORDERED: LR 1,000 ML IV SCH (12:50)
[2022-06-24] MEDS ORDERED: propofoL 200 MG/20 ML VIAL As Ordered ONE ×2 (13:25→13:32)
[2022-06-24] MEDS ORDERED: MIDAZOLAM INJ 2MG/2ML VIAL (J2250 PER 1MG) As Ordered ONE ×2 (13:26→13:33)
[2022-06-24] MEDS ORDERED: LIDOCAINE 1% SDV 30ML VIAL As Ordered ONE (13:52)
[2022-06-24] MEDS ORDERED: LIDOCAINE 2% INJ 100 MG/5 ML SYRINGE As Ordered ONE (14:09)
[2022-06-24 14:34] VITALS: BP 122/71
== END 2022-06-24 14:56 | disposition home or self-care (01) ==
LOC: M SDC 11:48
PROVIDERS: ATTEND Internal Medicine Cardiovascular Disease
DX: I48.0 Paroxysmal atrial fibrillation (principal); I35.8 Other nonrheumatic aortic valve disorders; M79.7 Fibromyalgia; M51.36 Other intervertebral disc degeneration, lumbar region; G47.33 Obstructive sleep apnea (adult) (pediatric); F41.9 Anxiety disorder, unspecified; E66.9 Obesity, unspecified; D64.9 Anemia, unspecified; Z79.899 Other long term (current) drug therapy
CPT/HCPCS: 33285; C1764; J0690; J1100; J2250

== ENCOUNTER → 2022-06-28 | Outpatient (CLI) | payer MEDICARE ==
[~2022-06-28] MED LIST changes: -ceFAZolin SOD 2 GM in IV 1 EA IV ONE
== END ==
LOC: M WHC 10:46
PROVIDERS: ATTEND Nurse Practitioner Adult Health
DX: R92.8 Other abnormal and inconclusive findings on diagnostic imaging of breast (principal); Z53.9 Procedure and treatment not carried out, unspecified reason

== ENCOUNTER → 2022-08-10 | Outpatient (CLI) | payer MEDICARE | LOC: M WHC 10:41 | PROVIDERS: ATTEND Family Medicine | DX: R92.8 Other abnormal and inconclusive findings on diagnostic imaging of breast (principal) | CPT/HCPCS: 77065; G0279 ==

== ENCOUNTER → 2022-08-16 | Outpatient (CLI) | payer MEDICARE | LOC: M PLAIMG 11:32 | PROVIDERS: ATTEND Nurse Practitioner Adult Health | DX: M47.22 Other spondylosis with radiculopathy, cervical region (principal) ==

== ENCOUNTER → 2022-12-28 | Outpatient (CLI) | payer MEDICARE ==
[~2022-12-28] MED LIST changes: +AUGM500T34 PO; +AZIT-12 PO; -DILT1CAP5; +DILT240C41; +FLUT50SP17 NARES; -FLUTISP NARES; +MIRT1TAB15 PO; +POTA-298 PO; -POTA1TAB14 PO; +TRAZ-252 PO
== END ==
LOC: M RAD 11:08
PROVIDERS: ATTEND Family Medicine
DX: Z87.891 Personal history of nicotine dependence (principal)

== ENCOUNTER → 2022-12-29 | Outpatient (CLI) | payer MEDICARE | LOC: M RAD 14:00 | PROVIDERS: ATTEND Internal Medicine Medical Oncology | DX: R22.1 Localized swelling, mass and lump, neck (principal); C91.10 Chronic lymphocytic leukemia of B-cell type not having achieved remission ==

== ENCOUNTER → 2023-02-04 | Outpatient (CLI) | payer MEDICARE ==
[~2023-02-04] MED LIST changes: +ISOVUE-370 76% 100ML VIAL As Ordered ONE
== END ==
LOC: M RAD 08:08
PROVIDERS: ATTEND Otolaryngology
DX: R22.1 Localized swelling, mass and lump, neck (principal); J34.1 Cyst and mucocele of nose and nasal sinus
CPT/HCPCS: 70491; Q9967

== ENCOUNTER → 2023-03-10 | Outpatient (CLI) | payer MEDICARE ==
[~2023-03-10] MED LIST changes: -ISOVUE-370 76% 100ML VIAL As Ordered ONE; +LIDOCAINE 1% MDV 20ML VIAL As Ordered ONE
[2023-03-10 11:10] VITALS: TEMP 98.5
[2023-03-10 11:48] VITALS: BP 141/77; O2SAT 96
== END ==
LOC: M IRPRO 11:00
PROVIDERS: ATTEND Otolaryngology
DX: C91.10 Chronic lymphocytic leukemia of B-cell type not having achieved remission (principal)

== ENCOUNTER → 2023-04-27 | Outpatient (CLI) | payer MEDICARE ==
[~2023-04-27] MED LIST changes: -CHLO125TA; +CHLO125TA PO; -DILT240C41; +DILT240C41 PO; -GABA-282; -LIDOCAINE 1% MDV 20ML VIAL As Ordered ONE; -SPIR-10; +SPIR-10 PO
[2023-04-27 18:20] LABS: BASO % 0.1 % (0.0-1.0); EOS % 0.1 % (0.0-3.0); HEMATOCRIT 40.7 % (36.0-47.0); LYMPH # 4.8 10^3/uL (1.5-5.0); LYMPH % 31.3 % (24.0-44.0); MEAN CORPUSCULAR HEMOGLOBIN 27.7 pg (27.0-33.0); MEAN CORPUSCULAR HGB CONC 31.9 g/dl (32.0-36.5); MEAN CORPUSCULAR VOLUME 86.6 fl (80.0-96.0); MONO # 0.7 10^3/uL (0.0-0.8); MONO % 4.4 % (2.0-8.0); NEUTROPHILS # 9.8 10^3/uL (1.5-8.5); NEUTROPHILS % 63.5 % (36.0-66.0); PLATELET COUNT, AUTOMATED 289 10^3/uL (150-450); WHITE BLOOD COUNT 15.4 10^3/uL (4.0-10.0)
[2023-04-27 18:45] LABS: FREE T4 1.07 NG/DL (0.89-1.76)
[2023-04-27 18:46] LABS: THYROID STIMULATING HORMONE 1.167 uIU/ML (0.55-4.78)
[2023-04-27 18:48] LABS: ALBUMIN 4.3 G/DL (3.2-5.2); BILIRUBIN,TOTAL 0.3 MG/DL (0.3-1.2); CALCIUM LEVEL 9.6 MG/DL (8.3-10.6); CREATININE FOR GFR 1.12 MG/DL (0.55-1.30); POTASSIUM SERUM 4.1 MMOL/L (3.5-5.1)
== END ==
LOC: M PLALAB 15:17
PROVIDERS: ATTEND Family Medicine
DX: I11.0 Hypertensive heart disease with heart failure (principal); I48.0 Paroxysmal atrial fibrillation; I50.9 Heart failure, unspecified

== ENCOUNTER 2023-05-04 10:20 | Observation (INO) | payer MEDICARE ==
[~2023-05-04] VITALS: Ht 157.5 cm; Wt 77.1 kg
[~2023-05-04 10:20] MED LIST changes: +metroNIDAZOLE 500 MG in IV 1 EA IV ONE
[2023-05-04] MEDS ORDERED: LR 1,000 ML IV SCH ×2 (11:00→20:25)
[2023-05-04] MEDS ORDERED: ceFAZolin 2 GM/D5W 50 ML IV BAG As Ordered ONE (14:59)
[2023-05-04] MEDS ORDERED: ceFAZolin SOD 2 GM in IV 1 EA IV ONE (15:00)
[2023-05-04] MEDS ORDERED: BACITRACIN OINTMENT 30GM TUBE As Ordered ONE ×2 (15:13→20:01)
[2023-05-04] MEDS ORDERED: LIDOCAINE W/EPINEPHRINE 1% 20ML VIAL As Ordered ONE (15:14)
[2023-05-04] MEDS ORDERED: EPINEPHrine 1MG/ML INJ 30ML MD-VIAL As Ordered ONE (15:14)
[2023-05-04] MEDS ORDERED: MIDAZOLAM INJ 2MG/2ML VIAL As Ordered ONE (15:21)
[2023-05-04] MEDS ORDERED: propofoL 200 MG/20 ML VIAL As Ordered ONE ×2 (15:22→15:57)
[2023-05-04] MEDS ORDERED: fentaNYL 100 MCG/2 ML INJECTION As Ordered ONE (15:22)
[2023-05-04] MEDS ORDERED: SUCCINYLCHOLINE 100MG/5ML SYRINGE As Ordered ONE (15:22)
[2023-05-04] MEDS ORDERED: ONDANSETRON 4MG 2ML VIAL As Ordered ONE (15:22)
[2023-05-04] MEDS ORDERED: LIDOCAINE 2% 100MG/5ML SDV (FOR ANES.) As Ordered ONE (15:24)
[2023-05-04] MEDS ORDERED: ACETAMINOPHEN 1000MG 100ML IV BAG As Ordered ONE (16:11)
[2023-05-04] MEDS ORDERED: GLYCOPYRROLATE INJ 0.2 MG/ML 2 ML VIAL As Ordered ONE (16:17)
[2023-05-04] MEDS ORDERED: HYDROmorphone HCL 2MG/ML 1ML VIAL As Ordered ONE (16:33)
[2023-05-04] MEDS ORDERED: LABETALOL 100MG/20ML VIAL As Ordered ONE (18:06)
[2023-05-04] MEDS ORDERED: TRANEXAMIC ACID 100 MG/ML 10ML VIAL As Ordered ONE (18:32)
[2023-05-04] MEDS ORDERED: ceFAZolin 1GM VIAL As Ordered ONE (19:39)
[2023-05-04] MEDS ORDERED: ONDANSETRON 4MG 2ML VIAL IV PRN ×2 (20:25→21:35)
[2023-05-04] MEDS ORDERED: fentaNYL 100 MCG/2 ML INJECTION IV PRN (20:25)
[2023-05-04] MEDS ORDERED: traZODone 50 MG TAB PO SCH (21:00)
[2023-05-04] MEDS ORDERED: ACETAMINOPHEN TAB 650MG DOSE (2X325MG) PO PRN (21:30)
[2023-05-04] MEDS ORDERED: LORazepam 2 MG/ML 1ML VIAL IV ONE (21:35)
[2023-05-04] MEDS ORDERED: MORPHINE 2 MG/ML 1ML VIAL IV PRN (21:35)
[2023-05-04] MEDS ORDERED: DILT240C42 PO (22:06)
[2023-05-04] MEDS ORDERED: ELIQ5TAB PO (22:06)
[2023-05-04] MEDS ORDERED: FURO40TA2 PO (22:06)
[2023-05-04] MEDS ORDERED: HOME MED LIST COMPLETE! XX SCH (22:10)
[2023-05-04 22:15] VITALS: BP 144/71; TEMP 97; O2SAT 93
[2023-05-04 22:45] VITALS: BP 154/74; TEMP 98; O2SAT 94
[2023-05-04] MEDS: MORPHINE 2 MG/ML 1ML VIAL IV PRN (23:19)
[2023-05-04] MEDS: ALPRAZolam 0.5 MG TAB PO PRN (23:20)
[2023-05-04] MEDS: dilTIAZem 120MG **CD** CAPSULE PO SCH (23:21)
[2023-05-04 23:45] VITALS: BP 117/88; TEMP 97; O2SAT 96
[2023-05-05] VITALS (8 sets, daily range): BP systolic 111–148; BP diastolic 66–85; TEMP 96.8–97.6; O2SAT 92–96
[2023-05-05] MEDS: MORPHINE 2 MG/ML 1ML VIAL IV PRN ×2 (03:11→09:49)
[2023-05-05 06:27] LABS: HEMATOCRIT 38.9 % (36.0-47.0); HEMOGLOBIN 12.9 g/dl (12.0-15.5); MEAN CORPUSCULAR HEMOGLOBIN 27.8 pg (27.0-33.0); MEAN CORPUSCULAR HGB CONC 33.2 g/dl (32.0-36.5); MEAN CORPUSCULAR VOLUME 83.8 fl (80.0-96.0); PLATELET COUNT, AUTOMATED 288 10^3/uL (150-450); RED BLOOD COUNT 4.64 10^6/uL (4.00-5.40)
[2023-05-05 06:47] LABS: BLOOD UREA NITROGEN 21 MG/DL (9-23); CALCIUM LEVEL 9.4 MG/DL (8.3-10.6); CARBON DIOXIDE LEVEL 27 MMOL/L (20-31); CHLORIDE LEVEL 108 MMOL/L (98-107); CREATININE FOR GFR 0.87 MG/DL (0.55-1.30); GLOMERULAR FILTRATION RATE > 60.0 (>45); GLUCOSE, FASTING 145 MG/DL (74-106); MAGNESIUM LEVEL 1.9 MG/DL (1.8-2.4); POTASSIUM SERUM 4.1 MMOL/L (3.5-5.1); SODIUM LEVEL 144 MMOL/L (136-145)
[2023-05-05] MEDS ORDERED: PRAVASTATIN 10 MG TAB PO SCH (09:00)
[2023-05-05] MEDS ORDERED: SPIRONOLACTONE 12.5MG PER 1/2 TABLET PO SCH (09:00)
[2023-05-05] MEDS ORDERED: POTASSIUM CHLORIDE 10MEQ SR TABLET PO SCH (09:00)
[2023-05-05] MEDS ORDERED: FUROSEMIDE 40 MG TAB PO SCH (09:00)
[2023-05-05] MEDS ORDERED: CHLORTHALIDONE 12.5MG PER 1/2 TABLET PO SCH (09:00)
[2023-05-05] MEDS ORDERED: DULoxetine 30MG CAPSULE (CYMBALTA) PO SCH (09:00)
[2023-05-05] MEDS: DOCUSATE SODIUM 100MG CAPSULE PO SCH ×2 (09:00→09:51)
[2023-05-05] MEDS: GABAPENTIN 300 MG CAP PO SCH ×2 (09:49→16:29)
[2023-05-05] MEDS: dilTIAZem 120MG **CD** CAPSULE PO SCH (09:51)
[2023-05-05] MEDS: ALPRAZolam 0.5 MG TAB PO PRN (10:01)
[2023-05-05] MEDS ORDERED: BACITRACIN OINTMENT 30GM TUBE TOP PRN (12:55)
[2023-05-05] MEDS ORDERED: ACET1TAB55 PO (14:55)
[2023-05-05] MEDS ORDERED: OXYC-517 PO ×2 (14:55→14:56)
[2023-05-05] MEDS ORDERED: ELIQ5TAB PO (14:55)
[2023-05-05] MEDS ORDERED: BACI50OI TOP (14:55)
== END 2023-05-05 17:01 | disposition home or self-care (01) ==
LOC: M SDC 10:20 → M RR INP 10:21 → M PCU 22:16
PROVIDERS: ADMIT Internal Medicine; ATTEND Internal Medicine
DX: D11.0 Benign neoplasm of parotid gland (principal); I48.0 Paroxysmal atrial fibrillation; I10 Essential (primary) hypertension; F41.9 Anxiety disorder, unspecified; F32.A Depression, unspecified; E78.5 Hyperlipidemia, unspecified; Z92.21 Personal history of antineoplastic chemotherapy; Z85.6 Personal history of leukemia; Z79.899 Other long term (current) drug therapy; F12.10 Cannabis abuse, uncomplicated; Z79.01 Long term (current) use of anticoagulants; D64.9 Anemia, unspecified; G47.33 Obstructive sleep apnea (adult) (pediatric); K58.8 Other irritable bowel syndrome; K21.9 Gastro-esophageal reflux disease without esophagitis
CPT/HCPCS: 36415; 42415; 80048; 83735; 85027; 88305; 96374; 96376; G0378; J0131; J0171; J0330; J0690; J1100; J1170; J1920; J2250; J2405; J3010

== ENCOUNTER → 2023-10-07 | Outpatient (CLI) | payer MEDICARE ==
[~2023-10-07] MED LIST changes: +ACET1TAB55 PO; +BACI50OI TOP; +DILT240C42 PO; -FLUT50SP17 NARES; +FLUTISP NARES; +OXYC-517 PO; -metroNIDAZOLE 500 MG in IV 1 EA IV ONE
== END ==
LOC: M WHC 10:55
PROVIDERS: ATTEND Family Medicine
DX: Z12.31 Encounter for screening mammogram for malignant neoplasm of breast (principal)

== ENCOUNTER 2023-10-17 09:26 | Outpatient (CLI) | payer MEDICARE ==
[~2023-10-17] VITALS: Ht 157.5 cm; Wt 75.0 kg
[2023-10-17] MEDS: diphenhydrAMINE 25MG CAP PO ONE (10:25)
[2023-10-17] MEDS: ACETAMINOPHEN TAB 650MG DOSE (2X325MG) PO ONE (10:25)
[2023-10-17 10:27] VITALS: BP 121/57; O2SAT 96
[2023-10-17] MEDS: dexAMETHasone 20MG/5ML VIAL IV ONE (10:32)
[2023-10-17] MEDS: IRON SUCROSE 200 MG in NS 100 ML OVER 1 HR IV ONE (10:45)
[2023-10-17 11:54] VITALS: BP 116/67; O2SAT 96
== END 2023-10-17 11:55 ==
LOC: M INFU 09:26
PROVIDERS: ATTEND Internal Medicine Medical Oncology
DX: D50.9 Iron deficiency anemia, unspecified (principal)
CPT/HCPCS: 96365; J1756

== ENCOUNTER 2023-10-24 10:00 | Outpatient (CLI) | payer MEDICARE ==
[~2023-10-24] VITALS: Ht 157.5 cm; Wt 74.5 kg
[2023-10-24 10:05] VITALS: BP 144/78; O2SAT 97
[2023-10-24] MEDS ORDERED: ACETAMINOPHEN 325 MG TAB As Ordered ONE (10:18)
[2023-10-24] MEDS: ACETAMINOPHEN TAB 650MG DOSE (2X325MG) PO ONE (10:23)
[2023-10-24] MEDS: dexAMETHasone 20MG/5ML VIAL IV ONE (10:23)
[2023-10-24] MEDS: diphenhydrAMINE 25MG CAP PO ONE (10:23)
[2023-10-24] MEDS: IRON SUCROSE 200 MG in NS 100 ML OVER 1 HR IV ONE (10:38)
[2023-10-24 10:55] VITALS: BP 110/57; O2SAT 94
[2023-10-24 11:43] VITALS: BP 134/80; O2SAT 96
== END 2023-10-24 11:50 | disposition home or self-care (01) ==
LOC: M INFU 10:00
PROVIDERS: ATTEND Internal Medicine Medical Oncology
DX: D50.9 Iron deficiency anemia, unspecified (principal)
CPT/HCPCS: 96365; J1756

== ENCOUNTER → 2023-10-26 | Outpatient (CLI) | payer MEDICARE | LOC: M WHC 13:27 | PROVIDERS: ATTEND Family Medicine | DX: R92.8 Other abnormal and inconclusive findings on diagnostic imaging of breast (principal); N63.21 Unspecified lump in the left breast, upper outer quadrant | CPT/HCPCS: 76642; 77065; G0279 ==

== ENCOUNTER 2023-11-02 10:05 | Outpatient (CLI) | payer MEDICARE ==
[~2023-11-02] VITALS: Ht 157.5 cm; Wt 74.5 kg
[2023-11-02 10:00] VITALS: BP 128/65; O2SAT 96
[~2023-11-02 10:05] MED LIST changes: +dexAMETHasone 20MG/5ML VIAL IV ONE
[2023-11-02] MEDS: diphenhydrAMINE 25MG CAP PO ONE (10:12)
[2023-11-02] MEDS: ACETAMINOPHEN TAB 650MG DOSE (2X325MG) PO ONE (10:12)
[2023-11-02] MEDS: IRON SUCROSE 200 MG in NS 100 ML OVER 1 HR IV ONE (10:21)
[2023-11-02 11:20] VITALS: BP 128/62; O2SAT 97
== END 2023-11-02 11:25 ==
LOC: M INFU 10:05
PROVIDERS: ATTEND Internal Medicine Medical Oncology
DX: D50.9 Iron deficiency anemia, unspecified (principal)
CPT/HCPCS: 96365; J1756

== ENCOUNTER 2023-11-07 10:11 | Outpatient (CLI) | payer MEDICARE ==
[~2023-11-07] VITALS: Ht 157.5 cm; Wt 75.0 kg
[2023-11-07] MEDS: diphenhydrAMINE 25MG CAP PO ONE (10:09)
[~2023-11-07 10:11] MED LIST changes: -dexAMETHasone 20MG/5ML VIAL IV ONE
[2023-11-07] MEDS: ACETAMINOPHEN TAB 650MG DOSE (2X325MG) PO ONE (10:12)
[2023-11-07 10:15] VITALS: BP 127/66; O2SAT 98
[2023-11-07] MEDS: IRON SUCROSE 200 MG in NS 100 ML OVER 1 HR IV ONE (10:43)
[2023-11-07] MEDS: dexAMETHasone 20MG/5ML VIAL IV ONE (10:44)
[2023-11-07 11:40] VITALS: BP 113/63; O2SAT 95
== END 2023-11-07 11:45 ==
LOC: M INFU 10:11
PROVIDERS: ATTEND Internal Medicine Medical Oncology
DX: D50.9 Iron deficiency anemia, unspecified (principal)
CPT/HCPCS: 96365; J1756

== ENCOUNTER 2023-11-17 12:50 | Outpatient (CLI) | payer MEDICARE ==
[~2023-11-17] VITALS: Ht 157.5 cm; Wt 76.3 kg
[~2023-11-17 12:50] MED LIST changes: +ACETAMINOPHEN TAB 650MG DOSE (2X325MG) PO ONE; +FLUTISP; +IRON SUCROSE 200 MG in NS 100 ML OVER 1 HR IV ONE; +OMEP40CA5 PO; +TRAZ-257 PO; +dexAMETHasone 20MG/5ML VIAL IV ONE; +diphenhydrAMINE 25MG CAP PO ONE
[2023-11-17 12:55] VITALS: BP 120/63; O2SAT 96
[2023-11-17] MEDS: diphenhydrAMINE 25MG CAP PO ONE (13:05)
[2023-11-17] MEDS: ACETAMINOPHEN TAB 650MG DOSE (2X325MG) PO ONE (13:05)
[2023-11-17] MEDS: dexAMETHasone 20MG/5ML VIAL IV ONE (13:05)
[2023-11-17] MEDS: IRON SUCROSE 200 MG in NS 100 ML OVER 1 HR IV ONE (13:27)
[2023-11-17 14:32] VITALS: BP 126/66; O2SAT 94
== END 2023-11-17 14:33 ==
LOC: M INFU 12:50
PROVIDERS: ATTEND Internal Medicine Medical Oncology
DX: D50.9 Iron deficiency anemia, unspecified (principal)
CPT/HCPCS: 96365; J1756

== ENCOUNTER 2023-11-22 14:17 | Day surgery (SDC) | payer MEDICARE ==
[~2023-11-22] VITALS: Ht 157.5 cm; Wt 73.5 kg
[~2023-11-22 14:17] MED LIST changes: -ACETAMINOPHEN TAB 650MG DOSE (2X325MG) PO ONE; -IRON SUCROSE 200 MG in NS 100 ML OVER 1 HR IV ONE; -dexAMETHasone 20MG/5ML VIAL IV ONE; -diphenhydrAMINE 25MG CAP PO ONE
[2023-11-22] MEDS ORDERED: fentaNYL 100 MCG/2 ML INJECTION As Ordered ONE (15:07)
[2023-11-22] MEDS ORDERED: propofoL 200 MG/20 ML VIAL As Ordered ONE (15:21)
[2023-11-22] MEDS ORDERED: LIDOCAINE 1% MDV 20ML VIAL As Ordered ONE (15:22)
[2023-11-22 15:33] VITALS: TEMP 96.8
[2023-11-22 15:52] VITALS: BP 135/57; O2SAT 94
== END 2023-11-22 16:05 | disposition home or self-care (01) ==
LOC: M OPP 14:17
PROVIDERS: ATTEND Internal Medicine Gastroenterology
DX: K57.31 Diverticulosis of large intestine without perforation or abscess with bleeding (principal); D12.4 Benign neoplasm of descending colon; K29.51 Unspecified chronic gastritis with bleeding; K64.8 Other hemorrhoids; R13.10 Dysphagia, unspecified; K58.9 Irritable bowel syndrome, unspecified; R10.9 Unspecified abdominal pain; R12 Heartburn; I48.91 Unspecified atrial fibrillation; I10 Essential (primary) hypertension; E78.00 Pure hypercholesterolemia, unspecified; Z85.6 Personal history of leukemia; Z90.49 Acquired absence of other specified parts of digestive tract; Z79.899 Other long term (current) drug therapy; G47.30 Sleep apnea, unspecified; Z92.21 Personal history of antineoplastic chemotherapy
CPT/HCPCS: 45385; 88305; J3010

== ENCOUNTER → 2023-11-24 | Outpatient (CLI) | payer MEDICARE ==
[2023-11-24 08:13] VITALS: TEMP 98.4
[2023-11-24 09:00] VITALS: BP 126/78
== END ==
LOC: M WHCPRO 07:57
PROVIDERS: ATTEND Family Medicine
DX: D24.2 Benign neoplasm of left breast (principal)

== ENCOUNTER → 2024-05-01 | Outpatient (CLI) | payer MEDICARE ==
[~2024-05-01] MED LIST changes: +GABA-1172 PO; -GABA-282 PO
== END ==
LOC: M PLAIMG 10:01
PROVIDERS: ATTEND Internal Medicine Cardiovascular Disease
DX: I35.0 Nonrheumatic aortic (valve) stenosis (principal)

== ENCOUNTER → 2024-08-29 | Outpatient (CLI) | payer MEDICARE ==
[~2024-08-29] MED LIST changes: +LINZ145C
== END ==
LOC: M WHC 10:17
PROVIDERS: ATTEND Family Medicine
DX: R92.8 Other abnormal and inconclusive findings on diagnostic imaging of breast (principal); N63.20 Unspecified lump in the left breast, unspecified quadrant

== ENCOUNTER → 2024-11-06 | Outpatient (CLI) | payer MEDICARE | LOC: M RAD 11:11 | PROVIDERS: ATTEND Family Medicine | DX: Z87.891 Personal history of nicotine dependence (principal) ==

== ENCOUNTER → 2024-11-23 | Outpatient (CLI) | payer MEDICARE | LOC: M PLAIMG 14:01 | PROVIDERS: ATTEND Family Medicine | DX: R07.81 Pleurodynia (principal) ==

== ENCOUNTER → 2024-12-10 | Outpatient (CLI) | payer MEDICARE | LOC: M WHC 10:10 | PROVIDERS: ATTEND Family Medicine | DX: Z13.820 Encounter for screening for osteoporosis (principal); M85.851 Other specified disorders of bone density and structure, right thigh; M85.852 Other specified disorders of bone density and structure, left thigh; M85.88 Other specified disorders of bone density and structure, other site ==